=== PATIENT | female | born 1960 | race Caucasian/White ===

== ENCOUNTER 2018-08-30 10:07 | Emergency (ER) | payer MEDICAID, OTHER ==
[~2018-08-30] VITALS: Ht 167.6 cm; Wt 93.2 kg
[~2018-08-30 10:07] MED LIST: LISI1TAB11 PO
[2018-08-30] MEDS ORDERED: TETanus/Pertussis (Acell)/Diphther VAC/PF (Tdap-Adult) 0.5ml syringe IM ONE (11:00)
[2018-08-30] MEDS ORDERED: LIDOcaine 1.5% w/epinephrine 1:200,000 5ml ampul IJ ONE (11:00)
[2018-08-30] MEDS ORDERED: LIDOcaine 1% w/epiNEPHrine 1:200,000 30ml vial IJ ONE (11:10)
[2018-08-30] MEDS ORDERED: DOXY100C2 PO (12:01)
[2018-08-30] MEDS ORDERED: HYDR-4353 PO (12:01)
[2018-08-30 12:05] VITALS: BP 162/81
== END 2018-08-30 12:06 | disposition home or self-care (01) ==
LOC: ER 10:08
DX: L02.212 Cutaneous abscess of back [any part, except buttock and flank] (principal); I10 Essential (primary) hypertension; M19.90 Unspecified osteoarthritis, unspecified site; Z79.899 Other long term (current) drug therapy; Z88.2 Allergy status to sulfonamides; Z88.8 Allergy status to other drugs, medicaments and biological substances; Z98.890 Other specified postprocedural states
CPT/HCPCS: 10060; 87070; 90471; 90715; 99283; J3490; 87077; 87186

== ENCOUNTER 2023-12-25 14:58 | Emergency (ER) | payer MEDICAID ==
[~2023-12-25] VITALS: Ht 165.1 cm; Wt 91.8 kg
[~2023-12-25 14:58] MED LIST changes: -LISI1TAB11 PO; +LISI1TAB51 PO
[2023-12-25 15:34] LABS: BASOPHILS % (AUTO) 0.5 % (0-1); EOSINOPHILS # (AUTO) 0.3 X10'3 (0-0.9); EOSINOPHILS % (AUTO) 3.2 % (0-6); HEMATOCRIT 39.4 % (35.0-45.0); HEMOGLOBIN 13.3 g/dl (12.0-16.0); LYMPHOCYTES # (AUTO) 2.4 X10'3 (1.1-4.8); LYMPHOCYTES % (AUTO) 30.6 % (21-51); MEAN CORPUSCULAR HEMOGLOBIN 31.8 PG (27.0-31.0); MEAN CORPUSCULAR HGB CONC 33.8 g/dL (33.0-36.5); MEAN PLATELET VOLUME 9.1 FL (7.4-10.4); MONOCYTES # (AUTO) 0.6 X10'3 (0-0.9); MONOCYTES % (AUTO) 7.1 % (2-12); NEUTROPHILS # (AUTO) 4.6 X10'3 (1.8-7.7); NEUTROPHILS % (AUTO) 58.6 % (42-75); PLATELET COUNT 183 X10'3 (140-440); RED BLOOD COUNT 4.19 X10'6 (4.20-5.60); RED CELL DISTRIBUTION WIDTH 13.5 % (11.5-14.5); WHITE BLOOD COUNT 7.8 X10'3 (4.5-11.0)
[2023-12-25 16:03] LABS: ALANINE AMINOTRANSFERASE 25 U/L (12-78); ALBUMIN 3.8 G/DL (3.4-5.0); ALBUMIN/GLOBULIN RATIO 1.1 (1.1-1.5); ALKALINE PHOSPHATASE 84 IU/L (46-116); ANION GAP 12 (8-16); ASPARTATE AMINO TRANSFERASE 17 U/L (10-37); BILIRUBIN,TOTAL 0.4 MG/DL (0.1-1.0); BLOOD UREA NITROGEN 23 MG/DL (7-18); CHLORIDE 105 MMOL/L (99-107); CREATININE 0.96 MG/DL (0.40-0.90); GLUCOSE 88 MG/DL (70-104); POTASSIUM 3.8 MMOL/L (3.5-5.1); PRO BRAIN NATRIURETIC PEPTIDE 291 PG/ML (0-125); SODIUM 142 MMOL/L (135-145); TOTAL CARBON DIOXIDE 25.2 MMOL/L (24-32); TOTAL PROTEIN 7.3 G/DL (6.4-8.2); eCRCL 55 ML/MIN; eGFR 59 ML/MIN
[2023-12-25 16:11] LABS: APTT 31 SECONDS (22-32); PROTHROMBIN TIME 11.2 SECONDS (9.0-12.0)
[2023-12-25 16:27] LABS: ETHANOL < 10 MG/DL (<10); FREE T4 (FREE THYROXINE) 1.04 NG/DL (0.73-1.40); LIPASE 36 U/L (16-77); MAGNESIUM 1.9 MG/DL (1.5-2.4); PHOSPHORUS 3.6 MG/DL (2.3-4.5); THYROID STIMULATING HORMONE 3.79 ulU/ml (0.34-4.50)
[2023-12-25] MEDS: hydrALAZINE 20mg/ml inj. IV ONE (16:51)
[2023-12-25 17:14] VITALS: BP 168/98; PULSE 52; RESP 16; O2SAT 98
[2023-12-25 17:14] LABS: BILIRUBIN,URINE NEGATIVE (Neg); CLARITY,URINE CLEAR (Clear); COLOR,URINE STRAW (Yellow); GLUCOSE, URINE NEGATIVE (Neg); KETONES,URINE NEGATIVE (Neg); LEUKOCYTE ESTERASE ,URINE TRACE (Neg); NITRITES, URINE NEGATIVE (Neg); OCCULT BLOOD,URINE NEGATIVE (Neg); PH,URINE 5.5 (4.8-8.0); PROTEIN,URINE NEGATIVE (Neg); UROBILINOGEN,URINE 0.2 E.U/dL (0.2-1.0)
[2023-12-25 17:22] LABS: UA COLLECTION TYPE CLN CATCH MIDSTREAM
[2023-12-25 17:23] LABS: BACTERIA,URINE FEW /HPF (Neg); MUCUS STRANDS NONE SEEN /LPF (Neg); RBC,URINE NONE SEEN /HPF (0-2); SQUAMOUS EPITHELIAL CELL,UR FEW /LPF (FEW); WBC,URINE 0-4 /HPF (0-4)
[2023-12-25 17:36] LABS: URINE AMPHETAMINE SCREEN NEGATIVE (Neg); URINE BARBITUATE SCREEN NEGATIVE (Neg); URINE BENZODIAZEPINES SCREEN NEGATIVE (Neg); URINE CANNABINOID SCREEN NEGATIVE (Neg); URINE COCAINE SCREEN NEGATIVE (Neg); URINE METHADONE SCREEN NEGATIVE (Neg); URINE OPIATE SCREEN NEGATIVE (Neg); URINE PHENCYCLIDINE SCREEN NEGATIVE (Neg)
[2023-12-25 19:29] VITALS: TEMP 97.8
== END 2023-12-25 21:28 | disposition left against medical advice (07) ==
LOC: ER 14:58
DX: I49.5 Sick sinus syndrome (principal); I48.91 Unspecified atrial fibrillation; E03.9 Hypothyroidism, unspecified; F32.A Depression, unspecified; Z88.2 Allergy status to sulfonamides; Z88.5 Allergy status to narcotic agent; Z79.899 Other long term (current) drug therapy
CPT/HCPCS: 36415; 80053; 80305; 80320; 81001; 83690; 83735; 83880; 84100; 84439; 84443; 84480; 84484; 85025; 85610; 85730; 87088; 93005; 96374; 99284; J0360